=== PATIENT | female | born 1970 | race African-American/Black ===

== ENCOUNTER → 2017-09-23 | Outpatient (CLI) | payer MEDICAID ==
[~2017-09-23] MED LIST: GADOBUTROL 10 ML VIAL IVP ONE
== END ==
LOC: FIMAGING 09:30
PROVIDERS: ATTEND Surgery
DX: C50.412 Malignant neoplasm of upper-outer quadrant of left female breast (principal); C77.3 Secondary and unspecified malignant neoplasm of axilla and upper limb lymph nodes
CPT/HCPCS: 0159T; 77059; A9585; C8908

== ENCOUNTER 2017-10-23 16:58 | Emergency (ER) | payer MEDICAID ==
--- NOTE | 2017-10-23 17:18 | CPEKG ---
Heart Rate: 93 RR Interval: 645 P-R Interval: 140 QRSD Interval: 84 QT Interval: 360 QTC Interval: 448 P Crozier: 69 QRS Crozier: 46 T Wave Crozier: 45 EKG Severity - NORMAL ECG - EKG Impression: SINUS RHYTHM Electronically Signed By: Navin Cui 23-Oct-2017 20:25:59
--- NOTE | 2017-10-23 17:40 | EDPHY ---
H & P Time Seen by Provider: 10/23/17 17:40 HPI/ROS: Chief complaint. Syncope HPI. The patient is a 47-year-old female here by EMS having a syncopal episode. She was in a sauna and got up and was dizzy upon standing. She sat down on the floor outside of the sauna. She then awoke on the floor. Unknown duration but relatively brief. She then tried to set up again and got dizzy. She complains of some pain to the right side of her head right shoulder right knee. No shortness of breath or chest discomfort or abdominal pain however. She has had previous syncopal episodes. She does have a recent breast cancer diagnosis. ROS Constitutional. no fever/chills, no weakness Eyes. no problems with vision ENT. no sore throat, no nasal drainage Cardiovascular. no chest pain Respiratory. no shortness of breath, no cough Abdominal. no abdominal pain, no nausea/vomiting, no diarrhea . no problems urinating MS. Pain right side of head, right shoulder, right knee Skin. no rash Lymph. no swollen glands Neuro. Syncope Past Medical/Surgical History: Recent breast cancer diagnosis Social History: Single, nonsmoker, no alcohol Smoking Status: Never smoked Physical Exam: General Appearance: Alert well-developed female mild distress vital signs are stable Eyes: Pupils equal and round no pallor or injection. ENT, tenderness to the right occiput area but there is no surface trauma Respiratory: There are no retractions, lungs are clear to auscultation. Cardiovascular: Regular rate and rhythm. Gastrointestinal: Abdomen is soft and nontender, no masses, bowel sounds normal. Neurological: Awake and alert, sensory and motor exams grossly normal. Skin: Warm and dry, no rashes. Musculoskeletal: Neck is supple nontender. Extremities right shoulder is tender but there is no surface trauma and she has good range of motion. Tenderness over the right cap however again no trauma no swelling. Psychiatric: Patient is oriented X 3, there is no agitation. Constitutional: Initial Vital Signs Temperature (C) 36.8 C 10/23/17 16:58 Heart Rate 99 10/23/17 16:58 Respiratory Rate 18 10/23/17 16:58 Blood Pressure 113/74 10/23/17 16:58 O2 Sat (%) 97 10/23/17 16:58 O2 Delivery Mode Room Air Allergies/Adverse Reactions: aspartame Allergy (Intermediate, Verified 10/23/17 17:05) latex Allergy (Intermediate, Verified 10/23/17 17:05) red onions Allergy (Intermediate, Uncoded 09/26/17 16:00) Home Medications: Medication Instructions Recorded Ascorbic Acid [Vitamin C] 1,000 mg PO 09/26/17 Magnesium 30 mg PO 09/26/17 Multivitamins [Multivitamin (*)] 09/26/17 Medical Decision Making - Diagnostics EKG Interpretation: EKG interpreted by me shows normal sinus rhythm normal interval and axis. QRS is normal there is no significant ST elevation or depression. No arrhythmia. The rate is 93 Procedures: IV normal saline, monitor ED Course/Re-evaluation: Re-evaluation at 6:50 p.m.. Patient is stable. The patient and I discussed EKG and laboratory evaluation. We discussed treatment plan including criteria for return and importance of follow-up and further evaluation. She expresses understanding and agreement Differential Diagnosis: I considered hypoglycemia, transient hypotension. Patient had been in a sauna and had been taking vitamins for a cleansing and detox. She may well have had a vaso dilute aureus response and then low blood sugar as a result. I have considered pulmonary embolus, acute coronary syndrome, arrhythmia. - Data Points Laboratory Results: Laboratory Results 10/23/17 17:05 10/23/17 17:05 10/23/17 10/23/17 10/23/17 17:05 17:05 17:05 WBC 7.90 10^3/uL 10^3/uL (3.80-9.50) RBC 4.94 10^6/uL 10^6/uL (4.18-5.33) Hgb 15.9 g/dL g/dL (12.6-16.3) Hct 45.6 % % (38.0-47.0) MCV 92.3 fL fL (81.5-99.8) MCH 32.2 pg pg (27.9-34.1) MCHC 34.9 g/dL g/dL (32.4-36.7) RDW 13.2 % % (11.5-15.2) Plt Count 242 10^3/uL 10^3/uL (150-400) MPV 10.4 fL fL (8.7-11.7) Neut % (Auto) 57.8 % % (39.3-74.2) Lymph % (Auto) 33.9 % % (15.0-45.0) Cherry % (Auto) 6.6 % % (4.5-13.0) Eos % (Auto) 0.9 % % (0.6-7.6) Baso % (Auto) 0.5 % % (0.3-1.7) Nucleat RBC Rel Count 0.0 % % (0.0-0.2) Absolute Neuts (auto) 4.57 10^3/uL 10^3/uL (1.70-6.50) Absolute Lymphs (auto) 2.68 10^3/uL 10^3/uL (1.00-3.00) Absolute Monos (auto) 0.52 10^3/uL 10^3/uL (0.30-0.80) Absolute Eos (auto) 0.07 10^3/uL 10^3/uL (0.03-0.40) Absolute Basos (auto) 0.04 10^3/uL 10^3/uL (0.02-0.10) Absolute Nucleated RBC 0.00 10^3/uL 10^3/uL (0-0.01) Immature Gran % 0.3 % % (0.0-1.1) Immature Gran # 0.02 10^3/uL 10^3/uL (0.00-0.10) D-Dimer 0.48 ug/mLFEU ug/mLFEU (0.00-0.50) Sodium 142 mEq/L mEq/L (135-145) Potassium 3.9 mEq/L mEq/L (3.3-5.0) Chloride 108 mEq/L mEq/L (97-110) Carbon Dioxide 23 mEq/l mEq/l (22-31) Anion Gap 11 mEq/L mEq/L (8-16) BUN 12 mg/dL mg/dL (7-23) Creatinine 0.9 mg/dL mg/dL (0.6-1.0) Estimated GFR > 60 Glucose 99 mg/dL mg/dL (70-100) Calcium 10.7 mg/dL H mg/dL (8.5-10.4) Phosphorus 3.4 mg/dL mg/dL (2.5-4.5) Medications Given: Discontinued Medications Sodium Chloride (Ns) 1,000 mls @ 0 mls/hr IV EDNOW ONE; Wide Open PRN Reason: Protocol Stop: 10/23/17 17:58 Last Admin: 10/23/17 18:00 Dose: 1,000 mls Departure - Departure Disposition: Home, Routine, Self-Care Clinical Impression: Syncope Qualifiers: Syncope type: unspecified Qualified Code(s): R55 - Syncope and collapse Condition: Good Instructions: Syncope (ED) Additional Instructions: Regular meals and drink plenty of fluids and stay hydrated. Easy activity next 24 hr. Return for worsening symptoms. Recheck in 2 days if not continuing to improve Referrals: Patient,NotPresent [Unknown] - As per Instructions Maya Dela Cruz DO [Doctor of Osteopathy] - 2-3 days, call for appt.
[2017-10-23] MEDS ORDERED: NS 1,000 ML IV ONE (17:57)
[2017-10-23 18:05] LABS: PLATELET COUNT 242 10^3/uL (150-400)
[2017-10-23 18:50] VITALS: BP 109/54
== END 2017-10-23 19:21 | disposition home or self-care (01) ==
LOC: EDUNIT#
DX: R55 Syncope and collapse (principal); E86.9 Volume depletion, unspecified; Z85.3 Personal history of malignant neoplasm of breast; Z91.040 Latex allergy status
CPT/HCPCS: 84484-PO

== ENCOUNTER → 2017-11-18 | Outpatient (CLI) | payer MEDICAID | LOC: BMCIMAGING 11:10 | PROVIDERS: ATTEND Nurse Practitioner Adult Health | DX: M25.512 Pain in left shoulder (principal) ==

== ENCOUNTER → 2018-05-09 | Outpatient (CLI) | payer MEDICAID | LOC: FIMAGING 08:15 | PROVIDERS: ATTEND Internal Medicine Hematology & Oncology | DX: C50.412 Malignant neoplasm of upper-outer quadrant of left female breast (principal); Z17.0 Estrogen receptor positive status [ER+]; Z08 Encounter for follow-up examination after completed treatment for malignant neoplasm ==